=== PATIENT | female | born 1945 | race Two or more races ===

== ENCOUNTER 2021-05-06 12:42 | Inpatient (IN) | payer OTHER ==
[~2021-05-06] VITALS: Ht 157.5 cm; Wt 59.0 kg
[~2021-05-06 12:42] MED LIST: CALCIUM1 TAB PO; CQ-10; GILTUSS LIQUID237 M1 PO; MULTIVITAMINS1 EAC1 PO; OMEGA 3-6-9 11200 MG PO; PROTEIN975 MG PO; PROTONIX40 MG PO; VITAMIN A8000 UNIT PO; VITAMIN C500 M1 PO; VITAMIN C500 M3 PO; VITAMIN E PO; [UNRECOGNIZED DRUG - OTHER] PO
[2021-05-06] MEDS ORDERED: FOLIC ACID0.8 M1 PO (13:07)
[2021-05-06] MEDS ORDERED: SANTYL OINT.30 GM TOP (13:07)
== END 2021-05-15 09:33 | disposition designated cancer center or children's hospital (05) | DRG 310 ==
LOC: ER 12:42 → MEDI 15:56 → SURH 05-10 14:30
PROVIDERS: ADMIT Internal Medicine; ATTEND Internal Medicine
PROC: 4A12X4Z Monitoring of Cardiac Electrical Activity, External Approach (ICD-10-PCS; principal; 2021-05-06)
DX: I48.91 Unspecified atrial fibrillation (principal); I34.1 Nonrheumatic mitral (valve) prolapse; Z20.822 Contact with and (suspected) exposure to COVID-19; Z53.29 Procedure and treatment not carried out because of patient's decision for other reasons; F41.8 Other specified anxiety disorders

== ENCOUNTER 2021-06-04 01:04 | Emergency (ER) | payer OTHER ==
[~2021-06-04] VITALS: Ht 157.5 cm; Wt 57.2 kg
[~2021-06-04 01:04] MED LIST changes: +FOLIC ACID0.8 M1 PO; +SANTYL OINT.30 GM TOP
[2021-06-04] MEDS ORDERED: TOPROL XL100 M1 (01:14)
[2021-06-04] MEDS ORDERED: PEPCID AC20 MG (01:14)
[2021-06-04] MEDS ORDERED: JANTOVEN4 MG (01:14)
== END 2021-06-04 15:07 | disposition home or self-care (01) ==
LOC: ER 01:04 → CPU-OBS 01:07 → ER 01:07
DX: R07.89 Other chest pain (principal); I34.0 Nonrheumatic mitral (valve) insufficiency; I48.20 Chronic atrial fibrillation, unspecified

== ENCOUNTER 2022-11-25 10:01 | Outpatient (CLI) | payer OTHER ==
[~2022-11-25 10:01] MED LIST changes: +JANTOVEN4 MG; +PEPCID AC20 MG; +TOPROL XL100 M1
== END 2022-11-25 10:03 | disposition home or self-care (01) ==
LOC: NUCLEAR 10:01
PROVIDERS: ATTEND Internal Medicine
DX: I50.9 Heart failure, unspecified (principal); I42.9 Cardiomyopathy, unspecified; I34.0 Nonrheumatic mitral (valve) insufficiency

== ENCOUNTER 2024-12-15 09:16 | Outpatient (CLI) | payer OTHER | END 2024-12-15 09:17 | disposition home or self-care (01) | LOC: NUCLEAR 09:16 | PROVIDERS: ATTEND Internal Medicine | DX: I50.9 Heart failure, unspecified (principal); I25.10 Atherosclerotic heart disease of native coronary artery without angina pectoris | CPT/HCPCS: 78472; A9560 ==

== ENCOUNTER 2025-02-09 10:24 | Outpatient (CLI) | payer OTHER | END 2025-02-09 10:25 | disposition home or self-care (01) | LOC: NUCLEAR 10:24 | DX: Z13.820 Encounter for screening for osteoporosis (principal); M81.0 Age-related osteoporosis without current pathological fracture ==